=== PATIENT | female | born 1960 | race African-American/Black ===

== ENCOUNTER 2017-01-20 13:21 | Emergency (ER) | payer MEDICAID | END 2017-01-20 14:28 | disposition home or self-care (01) | LOC: D.ER 13:21 | DX: J20.9 Acute bronchitis, unspecified (principal); I10 Essential (primary) hypertension; I34.1 Nonrheumatic mitral (valve) prolapse ==

== ENCOUNTER 2017-04-20 15:09 | Inpatient (IN) | payer MEDICAID ==
[~2017-04-20] VITALS: Ht 162.6 cm; Wt 94.3 kg
--- NOTE | ~2017-04-20 | EC ---
PATIENT:ASHLEE NDIAYE DATE OF SERVICE: 04/20/17 SEX: F MEDICAL RECORD: [id number] DATE OF : 60 LOCATION:D.M2 D.210 AGE OF PATIENT: 56 ADMISSION DATE: 04/20/17 REFERRING PHYSICIAN: INTERPRETING PHYSICIAN: TRIXIE SCHMID MD ECHOCARDIOGRAM REPORT ECHO CHARGES 4 ECHO COMPLETE CLINICAL DIAGNOSIS: TIA HX HTN/TIA ECHOCARDIOGRAPHIC MEASUREMENTS (adult normal given) AC root (d.<3.7cm) 3.6 cm LV Septum d (<1.2 cm> 1.2 cm Valve Excursion 1.9 cm LV Septum (systole) 1.4 cm Left Atria (s.<4.0cm> 3.0 cm LVPW d(<1.2cm) 1.0 cm RV (d.<2.3cm) 3.4 cm LVPW (sytole) 1.7 cm LV diastole(<5.6CM) 4.6 cm MV E-F(>70mm/sec) cm LV systole 2.6 cm LVOT Diameter 1.9 cm MV exc.(>10mm) 1.8 cm Est.ejection fraction (50-75%) % Pericardial Effusion N DOPPLER: LVIT cm/sec A 100 cm/sec E 78.0 cm/sec LA cm/sec RVSP 29 mmHg LVOT 138 cm/sec AOP1/2T m/s Asc. Ao 160 cm/sec RVOT 98 cm/sec RA cm/sec PA 113 cm/sec AV Gradient Peak 10.28mmHg AV Mean 4.69 mmHg AV Area 2.6 cm MV Gradient Peak 3.17 mmHg MV Mean 1.07 mmHg MV Area cm COMMENTS: Advanced Manufacturing Technician: Yasmine TORRES Flow Coordinator: 1 Dr. Schmid TAPE# PACS DATE OF SERVICE: 04/22/2017 Echocardiogram FINDINGS: 1. Left ventricle chamber size is within normal limits. Left ventricular systolic function is normal. Overall ejection fraction estimated at 65%. 2. Left atrium, right atrium, and right ventricle chamber sizes are within normal limits. 3. Valvular structures have normal structure and motion. ECHOCARDIOGRAM REPORT [id number] ASHLEE NDIAYE 4. Doppler interrogation reveals mild tricuspid regurgitation. No other valvular insufficiency or stenosis. Pulmonary systolic pressure is normal estimated at 29 mmHg. 5. No evidence of pericardial effusion or left ventricular thrombus. TRANSINT:[id number] Voice Confirmation ID: [id number] DOCUMENT ID: [id number] TRIXIE SCHMID MD CC: [id number] DICTATION DATE: 04/22/17 1158 RUBBER EXTRUSION MACHINE OPERATOR: 04/22/17 1348 ADM IN [facility] [address] [place] [id number]
[2017-04-20 15:55] LABS: BASOPHILS 0.4 % (0-2); EOSINOPHILS 5.2 % (0-7); HEMATOCRIT 36.9 % (36.0-48.0); HEMOGLOBIN 11.7 g/dL (12-16); IMMATURE GRANULOCYTES 0.2 % (0-5); LYMPHOCYTES 36.3 % (15-50); MCH 25.2 pg (26.0-34.0); MCHC 31.7 g/dL (31.0-37.0); MCV 79.4 fL (80.0-100.0); MEAN PLATELET VOLUME 9.7 fL (7.4-10.4); MONOCYTES 8.1 % (2-11); NEUTROPHILS 49.8 % (40-80); PLATELET COUNT 333 10x3/uL (130-400); RBC 4.65 10x6/uL (4.00-5.40); RDW 14.7 % (11.5-14.5); WBC 8.1 10x3/uL (4.8-10.8)
[2017-04-20 16:05] LABS: ALBUMIN 3.3 g/dL (3.4-5.0); ALKALINE PHOSPHATASE 96 U/L (46-116); ALT (SGPT) 21 U/L (10-68); BILIRUBIN - TOTAL 0.48 mg/dL (0.2-1.3); CALC OSMOLALITY 281 mosm/kg (275-300); CALCIUM 8.7 mg/dL (8.5-10.1); CHLORIDE - SERUM 105 mmol/L (98-107); GLUCOSE 126 mg/dL (74-106); POTASSIUM - SERUM 3.4 mmol/L (3.5-5.1); PROTEIN - SERUM 7.7 g/dL (6.4-8.2); SODIUM 140 mmol/L (136-145); UREA NITROGEN 15 mg/dL (7-18); eGFR NON AFRICAN AMERICAN 61 mL/min (90-120)
[2017-04-20 16:15] LABS: CKMB 1.2 U/L (0.0-3.6); CREATINE KINASE 106 UL (21-215)
[2017-04-20 16:16] LABS: TROPONIN-I < 0.017 ng/mL (0.000-0.060)
[2017-04-20 16:38] LABS: APPEARANCE CLEAR (CLEAR); BILIRUBIN NEGATIVE (NEGATIVE); COLOR YELLOW (YELLOW); GLUCOSE NEGATIVE (NEGATIVE); KETONE NEGATIVE (NEGATIVE); LEUKOCYTE ESTERASE TRACE (NEGATIVE); NITRITE NEGATIVE (NEGATIVE); PROTEIN NEGATIVE (NEGATIVE); UROBILINOGEN NORMAL (NORMAL)
[2017-04-20 16:46] LABS: UDS - AMPHET NEGATIVE QUAL (NEGATIVE); UDS - BARB NEGATIVE QUAL (NEGATIVE); UDS - BENZO NEGATIVE QUAL (NEGATIVE); UDS - COCAINE NEGATIVE QUAL (NEGATIVE); UDS - METH NEGATIVE QUAL (NEGATIVE); UDS - OPIATE NEGATIVE QUAL (NEGATIVE); UDS - PCP NEGATIVE QUAL (NEGATIVE); UDS - THC NEGATIVE QUAL (NEGATIVE)
[2017-04-20 16:51] LABS: BACTERIA FEW /hpf (NONE SEEN); EPITHELIAL CELLS 0-5 /hpf (0-5); RED CELLS - URINE 0-5 /hpf (0-5); WHITE CELLS - URINE 0-5 /hpf (0-5)
[2017-04-20 19:00] VITALS: BP 126/68
[2017-04-20] MEDS ORDERED: METOPROLOL TART50 MG PO (19:38)
[2017-04-20] MEDS ORDERED: SYNTHROID50 MCG PO (19:39)
[2017-04-20] MEDS ORDERED: FUROSEMIDE20 MG PO (19:40)
[2017-04-20] MEDS ORDERED: BAYER ASPIRIN325 MG PO (19:40)
[2017-04-20] MEDS ORDERED: LISINOPRIL5 MG PO (19:40)
[2017-04-20] MEDS ORDERED: TOPROL XL50 MG PO (19:41)
--- NOTE | 2017-04-20 20:36 | NUR ---
PT ARRIVED TO ROOM AWAKE, ALERT, ORIENTED, TRANSFERRED TO BED WITHOUT ANY DIFFICULTY. PT DENIES ANY ACUTE NEEDS AT THIS TIME, IS IN NO ACUTE DISTRESS. PT DOES STATE SHE IS HAVING ACTIVE WEAKNESS, NUMBNESS, AND TINGLING ON HER RIGHT SIDE, AND VERBALLY AGREED TO ME THAT SHE WILL CALL ANYTIME SHE NEEDS TO AMBULATE OR FOR ANY OTHER NEEDS. V/S STABLE AND WNL. CONTINUE TO MONITOR PT CLOSELY. BED LOW, CALL LIGHT IN REACH, SIDE RAILS X 2, HOB 30 DEGREES.
--- NOTE | 2017-04-20 22:04 | NUR ---
PT CALLED C/O RIGHT SIDED CHEST PAIN, NONEXERTIONAL. HAVE CONTACTED OPERATIONS SPECIALIST FOR FURTHER ORDERS SINCE PT WAS ADMITTED WITHOUT ANY MEDICATIONS OR ORDERS FOR TX. CONTINUE TO MONITOR CLOSELY.
[2017-04-20 22:52] LABS: CKMB 0.9 U/L (0.0-3.6); CREATINE KINASE 90 UL (21-215)
[2017-04-20 22:53] LABS: TROPONIN-I < 0.017 ng/mL (0.000-0.060)
--- NOTE | 2017-04-20 23:24 | NUR ---
NEW ORDER FOR PRN MORPHINE AND IM PHENERGAN GIVEN TO PT FOR CHEST PAIN PER REQUEST. PT STATED SHE DID NOT LIKE HOW IT MAKES HER FEEL AND THEN BECAME VERY NAUSEATED. IM PHENERGAN GIVEN TO COUNTERACT NAUSEA FROM MORPHINE, BUT IT DID TAKE A FEW MINUTES BEFORE HELPING. COLD RAG AND EMESIS BAG GIVEN TO PT. PT CURRENTLY RESTING COMFORTABLY AT THIS TIME, DENIES ANY OTHER NEEDS. CONTINUE TO MONITOR CLOSELY.
[2017-04-21] VITALS (7 sets, daily range): BP systolic 106–131; BP diastolic 56–68; Ht 162.6 cm; Wt 94.3 kg
--- NOTE | 2017-04-21 05:52 | NUR ---
PT RESTING COMFORTABLY, IN NO ACUTE DISTRESS. PT STATED WHEN SHE AMBULATED TO BATHROOM AND BECAME DIZZY. PT DENIED NAUSEA OR PAIN AT THIS TIME. SHE STATED THAT SHE FELT IT MAY HAVE BEEN THE MORPHINE FROM EARLIER THAT MAY HAVE CAUSED HER DIZZINESS. PT DENIES ANY NEEDS. CONTINUE TO MONITOR CLOSELY. BED LOW, CALL LIGHT IN REACH, SIDE RAILS X 2, HOB 30 DEGREES.
[2017-04-21 06:05] LABS: CKMB 0.8 U/L (0.0-3.6); CREATINE KINASE 78 UL (21-215)
[2017-04-21 06:11] LABS: TROPONIN-I < 0.017 ng/mL (0.000-0.060)
--- NOTE | 2017-04-21 07:10 | NUR ---
RECEIVED REPORT. ASSUMED CARE OF PATIENT. RESTING WITH EYES CLOSED, EASILY AROUSED. RESP EVEN AND UNLABORED. DENIES CHEST PAIN, STILL COMPLAINS OF SLIGHT TINGLING IN RIGHT HAND AND RIGHT LEG. NONPROFIT DIRECTOR EQUAL. CALL LIGHT WITHIN REACH. NO DISTRESS.
--- NOTE | 2017-04-21 08:40 | NUR ---
PATIENT LEFT UNIT VIA WHEELCHAIR FOR MRI. NO DISTRESS UPON LEAVING UNIT.
--- NOTE | 2017-04-21 09:15 | NUR ---
RETURNED FROM MRI. NO DISTRESS.
--- NOTE | 2017-04-21 09:30 | NUR ---
ULTRASOUND AT BEDSIDE DOING ECHO. NO DISTRESS.
[2017-04-21 11:20] LABS: CKMB 0.5 U/L (0.0-3.6); CREATINE KINASE 76 UL (21-215); TROPONIN-I < 0.017 ng/mL (0.000-0.060)
--- NOTE | 2017-04-21 13:31 | NUR ---
RESTING WITH EYES OPEN, DENIES NEEDS. FRESH ICE WATER PROVIDED. CALL LIGHT WITHIN REACH. NO DISTRESS. IV FLUIDS INFUSING ORDERED.
--- NOTE | 2017-04-21 18:29 | NUR ---
PATIENT RESTING IN BED WITH EYES OPEN. NO DISTRESS. DENIES NEEDS. CALL LIGHT WITHIN REACH.
--- NOTE | 2017-04-21 22:40 | NUR ---
NURSE ROUNDS 19:30 - PT AWAKE, ALERT, ORIENTED, REQUESTING SOMETHING TO EAT. TURKEY SANDWICH AND GRAPES GIVEN. PT DENIES ANY OTHER NEEDS. CONTINUE TO MONITOR CLOSELY. BED LOW, CALL LIGHT IN REACH, SIDE RAILS X 2, HOB 35 DEGREES.
[2017-04-22 00:45] VITALS: BP 150/72
[2017-04-22 04:00] VITALS: BP 144/77
--- NOTE | 2017-04-22 06:06 | NUR ---
PT RESTING COMFORTABLY, DENIES ANY NEEDS. CONTINUE TO MONITOR CLOSELY.
--- NOTE | 2017-04-22 07:20 | NUR ---
AM ROUNDING DONE WITH PATIENT NO COMPLAINTS OR REQUESTS AT PRESENT TIME. ON HEART MONITOR SHOWING SR, HR 60. ON ROOM AIR. RIGHT FA SEEN WITH NS INFUSING AT 125 CC/HR WITHOUT REDNESS OR SWELLING. PATIENT REPORTS THAT DR HESTER HAS BEEN IN TO SEE HER AND NEW TESTING HAS BEEN ORDERED PER HER REPORT. WILL CPOC. CALL LIGHT IN USE.
[2017-04-22 07:55] LABS: HEMOGLOBIN A1C 6.1 % (4.8-6.0)
[2017-04-22 08:00] VITALS: BP 121/64
--- NOTE | 2017-04-22 08:58 | NUR ---
PATIENT TO COMPLAIN OF RIGHT ARM PAIN WHERE IV IS INFUSING, STARTING TO "BE TENDER". IV STOPPED. EBONIE WANTS ME TO "WAIT AWHILE BEFORE YOU STICK ME AGAIN",
--- NOTE | 2017-04-22 09:56 | NUR ---
IV RE-SITED X 1 STICK WITH 22G TO LEFT WRIST. RIGHT FA IV REMOVED WITH CATH TIP INTACT.
[2017-04-22 12:00] VITALS: BP 138/72
--- NOTE | 2017-04-22 12:23 | NUR ---
20 G X 1 STICK TO RIGHT HAND PER G[facility] MEDINA GENERAL II FARMWORKER ACCESS NURSE. PATIENT IS NPO FOR CTA TODAY.
--- NOTE | 2017-04-22 12:38 | NUR ---
TO CT VIA BED FOR CTA.
--- NOTE | 2017-04-22 12:50 | NUR ---
RETURNS FROM CT. CALLED KITCHEN FOR LATE TRAY.
--- NOTE | 2017-04-22 14:11 | NUR ---
PATIENT IS STILL "HUNGRY" AFTER LUNCH. BULMARO CRACKERS AND MILK GIVEN.
[2017-04-22 16:00] VITALS: BP 126/65
--- NOTE | 2017-04-22 17:41 | NUR ---
IV OF NS INFUSING TO LEFT WRIST WITHOUT PROBLEMS, STILL HAS RIGHT HAND SALINE LOCK IF NEEDED. DENIES ANY CHEST PAIN OR DISCOMFORT. WILL CPOC.
[2017-04-22 19:45] VITALS: BP 140/65
--- NOTE | 2017-04-22 21:44 | NUR ---
NURSE ROUNDS 19:45 - PT AWAKE, ALERT, ORIENTED, REQUESTING IV IN RIGHT HAND TO BE MOVED IMMEDIATELY R/T GREAT PAIN AND DISCOMFORT PER PT, SO I REMOVED IT WITH CATH TIP INTACT. PT DENIED ANY OTHER NEEDS. CONTINUE TO MONITOR CLOSELY. BED LOW, CALL LIGHT IN REACH SIDE RAILS X 2, HOB 25 DEGREES.
[2017-04-23 01:25] VITALS: BP 120/68
[2017-04-23 05:02] VITALS: BP 146/74
--- NOTE | 2017-04-23 08:25 | NUR ---
0710-AM ROUNDING DONE WITH PATIENT UP IN SHOWER AT THIS TIME. WILL COME BACK AND CHECK ON HER. 0720-OUT OF SHOWER, PLACED BACK ON HEART MONITOR. HEART MONITOR SHOWING SR, HR 70. SALINE LOCK SEEN TO LEFT WRIST. ON ROOM AIR. DENIES ANY NEEDS. WILL CPOC.
[2017-04-23 08:45] VITALS: BP 134/71
--- NOTE | 2017-04-23 10:41 | NUR ---
REQUESTED LEMON ALTURAS SODA AND SODA CRACKERS, GIVEN.
--- NOTE | 2017-04-23 12:23 | NUR ---
HEART MONITOR IS TURNED IN TO BUSINESS ARCHITECT.
[2017-04-23 12:29] VITALS: BP 136/61
--- NOTE | 2017-04-23 12:34 | NUR ---
Patient Name: ASHLEE NDIAYE Admission Status: ER Accout number: [id number] Admission Date: 04-22-2017 : 1960 Admission Diagnosis:ANESTHESIA OF SKIN Attending: JEREMY Current LOS: 1 Anticipated DC Date: 04-23-2017 Planned Disposition: Home Primary Insurance: [employer] Discharge Planning Comments: * Is the patient Alert and Oriented? Yes 0 * How many steps to enter\exit or inside your home? NONE 0 * PCP NONE 0 * Pharmacy [facility] 0 * Preadmission Environment Home Alone 0 * ADLs Independent 0 * Equipment None 0 * Other Equipment NO MEDICAL EQUIPMENT PROVIDER PREFERENCE 0 * List name and contact numbers for known caregivers / representatives who currently or will assist patient after discharge: MARIAH NDIAYE, DTR, 0 * Community resources currently utilized None 0 * Please name any agencies selected above. NONE 0 * Additional services required to return to the preadmission environment? No 0 * Can the patient safely return to the preadmission environment? Yes 0 * Has this patient been hospitalized within the prior 30 days at any hospital? No 0 CM RECEIVED DISCHARGE ORDER, MET WITH PT IN ROOM TO DISCUSS DISCHARGE PLANNING AND NEEDS. PT REPORTS LIVING AT HOME INDEPENDENTLY AND ALONE. PT HAS NO MEDICAL EQUIPMENT AND NO OUTSIDE SERVICES ASSISTING IN THE HOME. CM DISCUSSED AVAILABILITY OF HOME HEALTH, REHAB SERVICES AND MEDICAL EQUIPMENT. PT DENIES DISCHARGE NEEDS, REPORTS HER CAR IS IN THE PARKING LOT AND SHE IS DRIVING HERSELF HOME TODAY AT DISCHARGE. CM PROVIDED PT WITH [facility] INFORMATION FOR POSSIBLE PRIMARY CARE DOCTOR ARRANGEMENT. ANALYZER SALES NOTIFIED. Jigmaker: Scotty Jones
--- NOTE | 2017-04-23 13:25 | NUR ---
0557-VERBAL AND WRITTEN DISCHARGE INSTRUCTIONS GIVEN TO PATIENT. SALINE LOCK REMOVED WITH CATH TIP INTACT. PATIENT IS WANTING A "RELEASE TO GO BACK TO WORK". IVELISSE GRIFFIN PAGED.
--- NOTE | 2017-04-23 13:43 | NUR ---
GENE TO CALL BACK R/T RELEASE FROM WORK.
--- NOTE | 2017-04-23 14:10 | NUR ---
DISCHARGED PER WHEELCHAIR TO HER OWN VECHILE.
== END 2017-04-23 14:10 | disposition home or self-care (01) | DRG 68 ==
LOC: D.ER 15:09 → D.M2 18:34 → OBSVTIME 18:34 → D.M2 18:34
PROVIDERS: Family Medicine; Psychiatry & Neurology Neurology; ADMIT Family Medicine
DX: I66.02 Occlusion and stenosis of left middle cerebral artery (principal); R07.9 Chest pain, unspecified; I10 Essential (primary) hypertension; E03.9 Hypothyroidism, unspecified; D64.9 Anemia, unspecified; Z86.73 Personal history of transient ischemic attack (TIA), and cerebral infarction without residual deficits